=== PATIENT | male | born 1975 | race American Indian/Alaskan Native ===

== ENCOUNTER 2016-05-04 15:35 | Emergency (ER) | payer SELFPAY ==
[2016-05-04 16:21] LABS: Basophils % (Auto) 0.6 % (0.0-1.8); Eosinophils % (Auto) 3.7 % (0.0-4.3); Hematocrit 49.1 % (35.5-45.6); Hemoglobin 16.2 gm/dl (11.8-15.2); Mean Corpuscular HGB Conc 33 % (32-34); Mean Corpuscular Volume 78 fl (84-94); Platelet Count 241 K/mm3 (140-440); Red Blood Count 6.28 M/mm3 (3.65-5.03); Red Cell Distribution Width 14.9 % (13.2-15.2); White Blood Count 5.3 K/mm3 (4.5-11.0)
[2016-05-04 16:22] LABS: Mean Corpuscular Hemoglobin 26 pg (28-32)
[2016-05-04 16:40] LABS: Anion Gap 18 mmol/L; Blood Urea Nitrogen 11 mg/dL (9-20); Calcium 8.9 mg/dL (8.4-10.2); Carbon Dioxide 26 mmol/L (22-30); Chloride 99.6 mmol/L (98-107); Glucose 111 mg/dL (75-100); Potassium 3.5 mmol/L (3.6-5.0); Sodium 140 mmol/L (137-145)
--- NOTE | 2016-05-04 16:53 | XRay Report ---
Chest 2 views. Findings: The heart is borderline in size with normal pulmonary vascularity. The lungs are clear. There is no pleural fluid. Impression: No acute findings.
--- NOTE | 2016-05-04 17:30 | Emergency Department Report ---
Chief Complaint: High BP Stated Complaint: HEADACHE Time Seen by Provider: 05/04/16 17:27 - HPI History of Present Illness: PT c/o high blood pressure - ROS Review of Systems: + headache + photophobia - Exam Vital Signs: Vital Signs 05/04/16 15:57 Temperature 98.2 F Pulse Rate 84 Respiratory 18 Rate Blood Pressure 184/125 O2 Sat by Pulse 98 Oximetry Physical Exam: PT is alert, non toxic gcs 15, + photophobia MSE screening note: Focused history and physical exam performed. Due to findings the following was ordered: ED Medical Decision Making - Lab Data Result diagrams: 05/04/16 16:11 05/04/16 16:11 ED Disposition for MSE Condition: Stable
[2016-05-04] MEDS ORDERED: REGLAN IV PRN (20:38)
[2016-05-04] MEDS ORDERED: NORMODYNE IV ONE ×2 (20:38→21:38)
[2016-05-04] MEDS ORDERED: APRESOLINE IV ONE ×2 (20:38→21:38)
[2016-05-04] MEDS ORDERED: BENADRYL IV ONE ×2 (20:40→20:41)
[2016-05-04] MEDS ORDERED: NACL 0.9% 500 ML 500 ML IV ONE (20:41)
[2016-05-04] MEDS ORDERED: VALIUM IV ONE (20:47)
--- NOTE | 2016-05-04 21:15 | Cat Scan Report ---
FINAL REPORT PROCEDURE: CT HEAD/BRAIN WO CON TECHNIQUE: Computerized tomography of the head was performed without contrast material. HISTORY: headache COMPARISON: No prior studies are available for comparison. FINDINGS: Skull and scalp: Normal. Paranasal sinuses: Normal. Ventricles and subarachnoid spaces: Normal. Cerebrum: No evidence of hemorrhage, acute infarction or mass . Cerebellum and brainstem: No evidence of hemorrhage, acute infarction or mass. Vasculature: Normal. Comments: None. IMPRESSION: No acute intracranial abnormality
--- NOTE | 2016-05-04 21:30 | Emergency Department Report ---
HPI - General Chief Complaint: High BP Time Seen by Provider: 05/04/16 17:27 - HPI HPI: The patient is a 40-year-old male with a history of hypertension, who presents for evaluation of headache. The patient reports on and off headache for the past 4 days, 10/10 in severity, throbbing in quality, bilateral, exacerbated with bright lights. He also reports associated dizziness with position changes in physical activity, moderate to severe. He submits that he typically experiences headaches when his blood pressure is severely elevated. The patient denies fever, head injury, neck pain, neck stiffness, hearing changes, smell or taste changes, paresthesias, facial drooping, slurred speech, seizure- like activity, urine or bowel incontinence or retention, or other focal neurological deficit. ED Past Medical Hx - Past Medical History Previous Medical History?: Yes Hx Hypertension: Yes Additional medical history: diverticulitis - Surgical History Past Surgical History?: Yes Hx Appendectomy: Yes Additional Surgical History: hernia repair - Social History Smoking Status: Never Smoker Substance Use Type: Alcohol - Medications Home Medications: Home Medications Medication Instructions Recorded Confirmed Last Taken Type Ibuprofen [Motrin] 800 mg PO Q8HR PRN #12 tablet 05/04/16 Unknown Rx traMADol [Ultram 50 MG tab] 50 mg PO Q6HR PRN #12 tablet 05/04/16 Unknown Rx ED Review of Systems ROS: Stated complaint: HEADACHE Other details as noted in HPI Constitutional: denies: fever; reports dizziness ENT: denies: throat or neck pain Respiratory: denies: cough, shortness of breath Cardiovascular: denies: chest pain Endocrine: denies unexplained weight loss or gain Gastrointestinal: denies: abdominal pain, nausea Genitourinary: denies: dysuria Musculoskeletal: denies: leg swelling Skin: denies: rash Neurological: reports headache Hematological/Lymphatic: denies: easy bleeding or easy bruising Psych: denies sadness or hopelessness Physical Exam - Physical Exam Vital Signs: Vital Signs 05/04/16 05/04/16 05/04/16 15:57 18:38 19:12 Temperature 98.2 F 98.3 F Pulse Rate 84 87 104 H Respiratory 18 18 Rate Blood Pressure 184/125 185/137 Blood Pressure [Left] O2 Sat by Pulse 98 97 Oximetry 05/04/16 05/04/16 05/04/16 19:15 19:20 19:26 Temperature Pulse Rate 72 84 88 Respiratory 21 24 10 L Rate Blood Pressure 179/119 179/119 179/119 Blood Pressure [Left] O2 Sat by Pulse 98 96 96 Oximetry 05/04/16 05/04/16 05/04/16 19:29 19:30 19:36 Temperature Pulse Rate 89 83 79 Respiratory 18 26 H 24 Rate Blood Pressure 179/128 179/128 Blood Pressure 179/117 [Left] O2 Sat by Pulse 100 98 98 Oximetry 05/04/16 05/04/16 05/04/16 19:40 19:45 19:50 Temperature Pulse Rate 82 81 80 Respiratory 27 H 25 H 24 Rate Blood Pressure 179/128 186/123 186/123 Blood Pressure [Left] O2 Sat by Pulse 98 98 98 Oximetry 05/04/16 05/04/16 05/04/16 19:56 20:00 20:06 Temperature Pulse Rate 82 81 82 Respiratory 24 26 H 25 H Rate Blood Pressure 186/123 182/129 182/129 Blood Pressure [Left] O2 Sat by Pulse 98 98 97 Oximetry 05/04/16 05/04/16 05/04/16 20:10 20:15 20:20 Temperature Pulse Rate 83 80 83 Respiratory 23 25 H 23 Rate Blood Pressure 182/129 182/126 182/126 Blood Pressure [Left] O2 Sat by Pulse 98 98 96 Oximetry 05/04/16 05/04/16 05/04/16 20:23 20:26 20:30 Temperature Pulse Rate 81 85 Respiratory 18 24 19 Rate Blood Pressure 182/126 183/127 Blood Pressure [Left] O2 Sat by Pulse 98 97 96 Oximetry 05/04/16 05/04/16 05/04/16 20:36 20:40 20:46 Temperature Pulse Rate 93 H 94 H 89 Respiratory 13 18 16 Rate Blood Pressure 182/129 182/129 198/131 Blood Pressure [Left] O2 Sat by Pulse 96 97 96 Oximetry 05/04/16 05/04/16 21:00 21:10 Temperature Pulse Rate 88 Respiratory Rate Blood Pressure 198/131 182/129 Blood Pressure [Left] O2 Sat by Pulse 99 Oximetry Physical Exam: General: well-nourished, well-developed, no acute distress Head: Normocephalic, atraumatic Eyes: normal sclera, EOMI, PERRL, no nystagmus ENT: Mucous membranes are pink and moist Neck: trachea midline, neck supple, No neck stiffness, no cervical adenopathy Respiratory: Breath sounds equal bilaterally, no wheezing, rales, or rhonchi Cardio: S1 and S2 present, no murmurs, rubs, gallops, capillary refill is brisk Abdomen: Normoactive bowel sounds, soft abdomen, no rigidity, no guarding or rebound tenderness Musc: No pitting edema Skin: No rash Neuro: Alert oriented 3, no facial drooping, normal speech, CN II through XII grossly intact, no gross motor or sensory deficits, reflexes 2+ symmetric on DTR testing, no current a she deficit with [id number] or [id number] testing, no obvious gross neuro deficits Psych: Normal affect ED Course Vital Signs 05/04/16 05/04/16 05/04/16 15:57 18:38 19:12 Temperature 98.2 F 98.3 F Pulse Rate 84 87 104 H Respiratory 18 18 Rate Blood Pressure 184/125 185/137 Blood Pressure [Left] O2 Sat by Pulse 98 97 Oximetry 05/04/16 05/04/16 05/04/16 19:15 19:20 19:26 Temperature Pulse Rate 72 84 88 Respiratory 21 24 10 L Rate Blood Pressure 179/119 179/119 179/119 Blood Pressure [Left] O2 Sat by Pulse 98 96 96 Oximetry 05/04/16 05/04/16 05/04/16 19:29 19:30 19:36 Temperature Pulse Rate 89 83 79 Respiratory 18 26 H 24 Rate Blood Pressure 179/128 179/128 Blood Pressure 179/117 [Left] O2 Sat by Pulse 100 98 98 Oximetry 05/04/16 05/04/16 05/04/16 19:40 19:45 19:50 Temperature Pulse Rate 82 81 80 Respiratory 27 H 25 H 24 Rate Blood Pressure 179/128 186/123 186/123 Blood Pressure [Left] O2 Sat by Pulse 98 98 98 Oximetry 05/04/16 05/04/16 05/04/16 19:56 20:00 20:06 Temperature Pulse Rate 82 81 82 Respiratory 24 26 H 25 H Rate Blood Pressure 186/123 182/129 182/129 Blood Pressure [Left] O2 Sat by Pulse 98 98 97 Oximetry 05/04/16 05/04/16 05/04/16 20:10 20:15 20:20 Temperature Pulse Rate 83 80 83 Respiratory 23 25 H 23 Rate Blood Pressure 182/129 182/126 182/126 Blood Pressure [Left] O2 Sat by Pulse 98 98 96 Oximetry 05/04/16 05/04/16 05/04/16 20:23 20:26 20:30 Temperature Pulse Rate 81 85 Respiratory 18 24 19 Rate Blood Pressure 182/126 183/127 Blood Pressure [Left] O2 Sat by Pulse 98 97 96 Oximetry 05/04/16 05/04/16 05/04/16 20:36 20:40 20:46 Temperature Pulse Rate 93 H 94 H 89 Respiratory 13 18 16 Rate Blood Pressure 182/129 182/129 198/131 Blood Pressure [Left] O2 Sat by Pulse 96 97 96 Oximetry 05/04/16 05/04/16 21:00 21:10 Temperature Pulse Rate 88 Respiratory Rate Blood Pressure 198/131 182/129 Blood Pressure [Left] O2 Sat by Pulse 99 Oximetry ED Medical Decision Making - Lab Data Result diagrams: 05/04/16 16:11 05/04/16 16:11 - Medical Decision Making The patient was seen and examined by myself. The patient is placed on a shelter monitor and continuous pulse ox. On initial evaluation, the patient was found to be in no distress. Evaluation orders were placed. Although there are no neuro deficits on exam, as the patient' experienced headache for the past 4 days, severe, with associated dizziness, a CAT scan of the head will be obtained. The patient is given 1 L normal saline fluid bolus for treatment of dehydration, and IV Reglan, Benadryl, and IV Toradol for his headache. Lab results reveal elevated hemoglobin and hematocrit, consistent with hemoconcentration and exam findings of dehydration, and otherwise labs were grossly unremarkable. CT scan the head is negative for acute intracranial disease process. The patient was reevaluated and reported that their symptoms were markedly improved. The patient is stable for discharge with outpatient follow-up. The patient is given follow-up and return instructions. The patient expressed understanding and agreed with the plan. The patient is discharged in stable condition. Critical care attestation.: If time is entered above; I have spent that time in minutes in the direct care of this critically ill patient, excluding procedure time. ED Disposition Clinical Impression: Dehydration, Orthostatic dizziness, Hypertensive urgency Acute nonintractable headache Qualifiers: Headache type: unspecified Qualified Code(s): R51 - Headache Disposition: DISCHARGED TO HOME OR SELFCARE Is pt being admited?: No Does the pt Need Aspirin: No Condition: Stable Instructions: Chronic Hypertension (ED), Migraine Headache (ED), Vertigo (ED), Dizziness (ED) Referrals: PRIMARY CARE, [Primary Care Provider] - 3-5 Days Time of Disposition: 21:22
[2016-05-04] MEDS ORDERED: MORPHINE IV ONE (21:38)
[2016-05-04] MEDS ORDERED: TORADOL IV ONE (21:38)
[2016-05-04 22:23] VITALS: BP 109/69
== END 2016-05-04 22:37 | disposition home or self-care (01) ==
LOC: ED 15:35
DX: E86.0 Dehydration (principal); R42 Dizziness and giddiness; I10 Essential (primary) hypertension; R51 Headache
CPT/HCPCS: 36415; 70450; 71020; 80048; 84484; 85025; 93005; 93010; 96374; 96375; 96376; 99285; J0360; J1200; J1885; J2270; J2765; J3360; J7040